=== PATIENT | male | born 1965 | race Caucasian/White ===

== ENCOUNTER 2020-03-20 10:18 | Outpatient (CLI) | payer OTHER, SELFPAY ==
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
== END 2020-03-20 10:19 | disposition home or self-care (01) ==
PROVIDERS: PCP Family Medicine; Visit Provider Physician Assistant
DX: S63.90XA Sprain of unspecified part of unspecified wrist and hand, initial encounter (principal); X58.XXXA Exposure to other specified factors, initial encounter; M79.89 Other specified soft tissue disorders
CPT/HCPCS: 73130

== ENCOUNTER 2021-11-24 09:18 | Outpatient (CLI) | payer OTHER, SELFPAY ==
--- NOTE | 2021-11-24 12:00 | NEURO_ITS ---
Impression: # Complains of nocturnal paresthesia of right hand particularly the middle finger. # Right moderate Carpal Tunnel Syndrome. # No ulnar neuropathy. # Normal needle/EMG exam. Nerve Conduction Studies Anti Sensory Summary Table Stim Site NR Peak (ms) P-T Amp (?V) Site1 Site2 Delta-P (ms) Dist (cm) Alexandro (m/s) Right Median Anti Sensory (2-3nd Digit) Wrist 5.9 16.9 Wrist 2-3nd Digit 5.9 14.0 24 Wrist 7.3 29.0 Wrist 2-3nd Digit 5.9 14.0 24 Right Radial Anti Sensory (Base 1st Digit) Wrist 2.2 44.5 Wrist Base 1st Digit 2.2 0.0 Right Ulnar Anti Sensory (5th Digit) Wrist 2.7 43.9 Wrist 5th Digit 2.7 14.0 52 Motor Summary Table Stim Site NR Onset (ms) O-P Amp (mV) Site1 Site2 Delta-0 (ms) Dist (cm) Alexandro (m/s) Right Median Motor (Abd Poll Brev) Wrist 6.7 1.5 Elbow Wrist 5.1 29.0 57 Elbow 11.8 1.5 Right Ulnar Motor (Abd Dig Minimi) Wrist 2.2 8.7 A Elbow Wrist 5.4 31.0 57 A Elbow 7.6 7.4 F Wave Studies NR F-Lat (ms) L-R F-Lat (ms) Right Median (Mrkrs) (Abd Poll Brev) 31.29 Right Ulnar (Mrkrs) (Abd Dig Min) 30.76 EMG Side Muscle Nerve Root Ins Act Fibs Amp Dur Recrt Comment Right 1stDorInt Ulnar C8-T1 Nml Nml Nml Nml Nml Right Ext Indicis Radial (Post Int) C7-8 Nml Nml Nml Nml Nml Right Ext Digitorum Radial (Post Int) C7-8 Nml Nml Nml Nml Nml Right BrachioRad Radial C5-6 Nml Nml Nml Nml Nml Right PronatorTeres Median C6-7 Nml Nml Nml Nml Nml Right Abd Poll Brev Median C8-T1 Nml Nml Nml Nml Nml MTDD
== END 2021-11-24 09:19 | disposition home or self-care (01) ==
LOC: ANHNEURO 09:19
PROVIDERS: PCP Family Medicine; Visit Provider Orthopaedic Surgery Hand Surgery
DX: G56.01 Carpal tunnel syndrome, right upper limb (principal)
CPT/HCPCS: 95886; 95909

== ENCOUNTER 2022-08-17 06:36 | Day surgery (SDC) | payer OTHER, SELFPAY ==
[2022-08-10 14:44] VITALS: BMI 38.7
[2022-08-17 07:25] VITALS: BP 151/95; PULSE 58; RESP 16; TEMP 37.1; O2SAT 100
[2022-08-17 07:35] VITALS: BMI 39.4
[2022-08-17] MEDS: TETRACAINE HCL 0.5% OPHTH SOLN 4 ML BTL 1 DROP AFFCTD EYE ×3 (07:49→08:00)
--- NOTE | 2022-08-17 08:00 | WPDHPUPDATE1 ---
History and Physical Update Update Date/Time: 08/17/22 08:00 History and Physical has been reviewed, including an updated exam of the patient. There are NO changes in the patient's condition. Risks, benefits, and alternatives have been discussed and questions answered. Patient agrees to proceed with procedure.
--- NOTE | 2022-08-17 12:28 | W.PM.PROC2 ---
Procedure Note - Detailed Date of Procedure 08/17/22 Pre-op Diagnosis Posterior Capsular Opacification Left Eye Post-op Diagnosis Same Procedure Performed YAG Laser Capsulotomy [LEFT] eye Surgeon Kris Ellsworth MD Anesthesia Other (Topical) Description of Procedure After appropriate discussion, consent and topical anesthesia, the patient was placed in front of the laser. All settings were checked. The laser procedure was then performed. The patient tolerated the procedure well. Power Level: [4.0] Number of Pulses: [30] Complications None Condition Stable Disposition Same day
== END 2022-08-17 08:24 | disposition home or self-care (01) ==
PROVIDERS: PCP Family Medicine; Visit Provider Student in an Organized Health Care Education/Training Program
PROC: (CPT 66821; principal; 2022-08-17 08:15)
DX: H26.492 Other secondary cataract, left eye (principal)
CPT/HCPCS: 66821

== ENCOUNTER 2022-09-30 09:44 | Emergency (ER) | payer OTHER, SELFPAY ==
[2022-09-30 09:58] VITALS: BP 163/95; PULSE 63; RESP 20; TEMP 36.3; O2SAT 96
--- NOTE | 2022-09-30 12:43 | ED.SKABFB ---
HPI - Skin/Abscess/Foreign Bdy General Chief complaint: Skin/Abscess/Foreign Body Stated complaint: Qtip stuck in right ear Time Seen by Provider: 09/30/22 12:04 Source: patient and RN notes reviewed Mode of arrival: ambulatory History of Present Illness HPI narrative: THis is a 57 year old male with history of hypertension who presents for evaluation of foreign body to right ear. HE states that his right ear was itching so he was using a Qtip. He states the cotton tip is stuck inside his right ear. He denies any pain. He denies drainage or bleeding Related Data Home Medications Medication Instructions Recorded Confirmed losartan 100 1 tablet PO DAILY 08/10/22 08/31/22 mg-hydrochlorothiazide 12.5 mg tablet Allergies Allergy/AdvReac Type Severity Reaction Status Date / Time No Known Allergies Allergy Verified 09/30/22 11:01 Review of Systems Review of Systems: All systems reviewed & are unremarkable except as noted in HPI and below PMFSH Past Medical History Medical History Allergic rhinitis Gastro-esophageal reflux disease without esophagitis Hypertension Surgical History Surgical History History of carpal tunnel release right 12/2021 History of eye surgery scleral buckle 1998 History of hand surgery left ring finger fracture 1999 Family History Family History Other Family history of malignant neoplasm Hypertension Social History Social History Smoking status: Former smoker Tobacco type: cigarettes Smoking end date: 06/26/05 Alcohol intake: current Drinks per week: 30 Alcohol use details: 30 pack a week Substance use: never Substance use type: does not use Lack of Transportation: No Lack of Food: Never True Current Housing: I Have Housing Concerned About Future Housing: No Difficulty Paying Gas/Electric Bills: No Difficulty Paying for Meds: No Currently Unemployed: No Education: High School Diploma/GED Difficulty w/ Childcare or Family Care: No Living arrangements: with family Occupation/Education: occupation Gender identity (if verbalized by the patient): Male Spiritual care concerns: No Exam Const: General: no acute distress and alert Nutritional Appearance: well nourished Orientation/consciousness: patient oriented x3 HENMT: Head: normal to inspection Ears: external ears normal and Abnormal EAC present foreign body (cotton in side canal) on the right Face and sinus: normal facial exam Eyes: EOM: EOMs intact bilaterally Resp: Effort & Inspection: normal respiratory effort Skin: General skin exam: normal color Rashes: no rashes Wounds: no wounds Neuro: General: patient oriented x3, moves all extremities and CN's II-XI intact bilaterally Psych: Mental Status: mental status grossly normal Affect: normal affect Attitude: cooperative Course Reevaluation(s) Reevaluation #1: I was able to remove cotton from his ear. No injury from removal. HE denies any questions or concerns. Date: 09/30/22 Time: 12:47 Vital Signs Vital signs: Vital Signs Temperature 97.4 F L 09/30/22 09:58 Pulse Rate 63 09/30/22 09:58 Respiratory Rate 20 09/30/22 09:58 Blood Pressure 163/95 H 09/30/22 09:58 Pulse Oximetry 96 09/30/22 09:58 Oxygen Delivery Room Air 09/30/22 09:58 Temperature 97.2 F L 09/30/22 13:03 Pulse Rate 58 L 09/30/22 13:03 Respiratory Rate 16 09/30/22 13:03 Blood Pressure 156/106 H 09/30/22 13:03 Pulse Oximetry 100 09/30/22 13:03 Oxygen Delivery Room Air 09/30/22 09:58 Procedures FB Removal Ear Foreign Body #1: Foreign Body Removal Date: 09/30/22 Foreign Body Removal Time: 12:44 Location: ear canal (R) Foreign Body Suspected: other (co
[2022-09-30 13:03] VITALS: BP 156/106; PULSE 58; RESP 16; TEMP 36.2; O2SAT 100
== END 2022-09-30 13:03 | disposition home or self-care (01) ==
PROVIDERS: Emergency Provider General Practice; PCP Family Medicine
DX: T16.1XXA Foreign body in right ear, initial encounter (principal); K21.9 Gastro-esophageal reflux disease without esophagitis; I10 Essential (primary) hypertension; Z87.891 Personal history of nicotine dependence
CPT/HCPCS: 69200; 99282